=== PATIENT | female | born 1980 | race Caucasian/White ===

== ENCOUNTER → 2018-02-01 | Outpatient (CLI) | payer BC ==
--- NOTE | 2018-02-02 07:39 | MM ---
Reason for exam: screening (asymptomatic). Baseline mammogram. History: Taking hormonal contraceptives beginning at age 20. Physical Findings: Nurse did not find any significant physical abnormalities on exam. MG Screening Mammo w CAD Bilateral CC and MLO view(s) were taken. The breast tissue is extremely dense which could obscure a lesion on mammography. There is no discrete abnormality. These results were verbally communicated with the patient and result sheet given to the patient on 02/01/18. ASSESSMENT: Negative, BI-RAD 1 RECOMMENDATION: Routine screening mammogram of both breasts at age 42.
== END | disposition home or self-care (01) ==
LOC: RADMAMWWP 14:06
PROVIDERS: ATTEND Obstetrics & Gynecology
DX: Z12.31 Encounter for screening mammogram for malignant neoplasm of breast (principal)
CPT/HCPCS: 77067

== ENCOUNTER → 2018-07-20 | Outpatient (CLI) | payer BC ==
--- NOTE | 2018-07-21 08:27 | XR ---
EXAMINATION TYPE: XR chest 2V DATE OF EXAM: 07/20/2018 COMPARISON: CT chest 08/13/2011 HISTORY: Presurgical TECHNIQUE: Frontal and lateral views of the chest are obtained. FINDINGS: There is no focal air space opacity, pleural effusion, or pneumothorax seen. The cardiac silhouette size is within normal limits. The osseous structures are intact. IMPRESSION: No acute cardiopulmonary process.
== END | disposition home or self-care (01) ==
LOC: RADXRMAIN 17:00
PROVIDERS: ATTEND Internal Medicine Geriatric Medicine
DX: Z01.818 Encounter for other preprocedural examination (principal)
CPT/HCPCS: 71046

== ENCOUNTER → 2021-09-07 | Outpatient (CLI) | payer BC ==
[2021-09-07 11:23] LABS: HCT 38.1 % (37.2-46.3); MCH 33.7 pg (27.0-32.0); MCHC 34.1 g/dL (32.0-37.0); MCV 98.7 fL (80.0-97.0); Mean Platelet Volume 10.4 fL (9.5-12.2); Platelet Count 285 X 10*3/uL (140-440); RBC 3.86 X 10*6/uL (4.10-5.20); RDW 11.8 % (11.5-14.5); WBC 9.51 X 10*3/uL (4.50-10.00)
[2021-09-07 11:24] LABS: Appearance,Urine Clear (Clear); Bacteria,Urine Rare /hpf; Bilirubin,Urine Negative (Negative); Blood,Urine Small (Negative); Color,Urine Light Yellow; Glucose,Urine (UA) Negative (Negative); Ketones,Urine Negative (Negative); Leukocyte Esterase,Urine Negative (Negative); Mucus,Urine Rare /hpf; Nitrite,Urine Negative (Negative); PH, Urine 5.5 (5.0-8.0); Protein,Urine Negative (Negative); RBC,Urine 2 /hpf (0-5); Squamous Epithelial Cell,Urine 1 /hpf (0-4); Urobilinogen,Urine <2.0 mg/dL (<2.0); WBC,Urine <1 /hpf (0-5)
[2021-09-07 16:59] LABS: Uric Acid 3.3 mg/dL (2.9-7.7)
[2021-09-07 17:05] LABS: Hepatitis B Surface Antigen Nonreactive (Nonreactive)
[2021-09-07 21:13] LABS: Total Volume 24 Hour,Urine 3000 mL
[2021-09-07 21:53] LABS: HIV 2 AB Non-Reactive (Non-Reactive); HIV AB P24 Non-Reactive (Non-Reactive); HIV P24 AG Non-Reactive (Non-Reactive)
[2021-09-08 12:46] LABS: Total Protein 24 Hour,Urine 9.2 mg/dL (0.0-165.0)
== END | disposition home or self-care (01) ==
LOC: LABWHC1 07:36
PROVIDERS: ATTEND Obstetrics & Gynecology Obstetrics
DX: Z34.01 Encounter for supervision of normal first pregnancy, first trimester (principal); I10 Essential (primary) hypertension
CPT/HCPCS: 36415; 81001; 81050; 82575; 82950; 83036; 84156; 84450; 84460; 84550; 85027; 86762; 86780; 86850; 86900; 86901; 87086; 87340; 87390

== ENCOUNTER → 2021-12-18 | Outpatient (CLI) | payer BC ==
[2021-12-18 14:34] LABS: HCT 37.7 % (37.2-46.3); HGB 12.2 g/dL (12.0-15.0); MCHC 32.4 g/dL (32.0-37.0); MCV 101.9 fL (80.0-97.0); Mean Platelet Volume 10.2 fL (9.5-12.2); Platelet Count 297 X 10*3/uL (140-440); RDW 12.5 % (11.5-14.5); WBC 11.13 X 10*3/uL (4.50-10.00)
== END | disposition home or self-care (01) ==
LOC: LABWHC1 07:01
PROVIDERS: ATTEND Obstetrics & Gynecology Obstetrics
DX: Z36.9 Encounter for antenatal screening, unspecified (principal)
CPT/HCPCS: 36415; 82950; 85027

== ENCOUNTER 2022-02-23 18:58 | Inpatient (IN) | payer BC ==
[2022-02-23] MEDS ORDERED: LIDOCAINE 1% (PF) 10 MG/ML (30 ML SDV) SQ PRN (19:49)
[2022-02-23] MEDS ORDERED: METHYLERGONOVINE 0.2 MG/ML 1 ML AMP IM PRN (19:49)
[2022-02-23] MEDS ORDERED: OXYTOCIN 10 UNIT/ML 1 ML VIAL IM PRN (19:49)
[2022-02-23] MEDS ORDERED: CARBOPROST TROMETHAMINE 250 MCG/ML 1 ML AMP IM PRN (19:49)
[2022-02-23] MEDS ORDERED: TERBUTALINE 1 MG/ML VIAL SQ PRN (19:49)
[2022-02-23] MEDS ORDERED: LABETALOL 200 MG TAB PO STA (19:50)
[2022-02-23] MEDS ORDERED: PENICILLIN G POTASSIUM 5,000,000 UNIT in DEXTROSE 5% IN WATER 100 ML IVPB STA ×2 (19:54)
[2022-02-23 20:05] LABS: Basophils % (A) 0 %; Eosinophils # (A) 0.1 k/uL (0-0.7); Eosinophils % (A) 1 %; HCT 42.7 % (34.0-46.0); Lymphocytes % (A) 17 %; MCH 33.1 pg (25.0-35.0); MCHC 32.9 g/dL (31.0-37.0); MCV 100.6 fL (80.0-100.0); Mean Platelet Volume 7.8; Monocytes # (A) 0.5 k/uL (0-1.0); Monocytes % (A) 5 %; Neutrophils # (A) 8.8 k/uL (1.3-7.7); Neutrophils % (A) 74 %; Platelet Count 301 k/uL (150-450); RBC 4.24 m/uL (3.80-5.40); RDW 12.8 % (11.5-15.5); WBC 11.9 k/uL (3.8-10.6)
[2022-02-23 20:11] LABS: Uric Acid 4.6 mg/dL (3.7-7.4)
[2022-02-23] MEDS ORDERED: BUTORPHANOL 1 MG/ML 1 ML VIAL IV PRN (20:36)
[2022-02-23] MEDS: LACTATED RINGERS 1,000 ML IV SCH (20:41)
[2022-02-24] MEDS: PENICILLIN G POTASSIUM 2,500,000 UNIT in DEXTROSE 5% IN WATER 100 ML IVPB SCH ×6 (01:12→22:26)
[2022-02-24] MEDS ORDERED: ROPIVACAINE 5MG/ML 20ML VIAL ONE (03:29)
[2022-02-24] MEDS ORDERED: fentaNYL (PF) 50 MCG/ML 5 ML AMP ONE (03:29)
[2022-02-24] MEDS ORDERED: SODIUM CHLORIDE 0.9% 100 ML BAG ONE (03:29)
[2022-02-24] MEDS: LACTATED RINGERS 1,000 ML IV SCH ×2 (04:14→04:15)
[2022-02-24] MEDS ORDERED: OXYTOCIN 30 UNITS/500 ML NS 30 UNIT in SALINE 1 500ML.BAG IV SCH (06:00)
[2022-02-24] MEDS ORDERED: LABETALOL 200 MG TAB PO ONE (07:00)
--- NOTE | 2022-02-24 08:42 | P.HPOB ---
History of Present Illness H&P Date: 02/24/22 Chief Complaint: My water broke last night, clear fluid This is a 41-year-old female 1 para 0 EDC 03/23/2022 at 36 and one sevenths weeks' gestation who presented, spontaneous amniorrhexis last night at home, clear fluid. She progressed through labor as the night progressed. Initial blood pressure elevated, on labetalol 100 mg twice daily, has not taken for 24 hours. Past history is significant for chronic hypertension. Past surgical history herniated disc repair 2017. Current medications labetalol 100 mg twice daily, vitamin daily, baby aspirin daily. ALLERGIES none known. Family history significant for diabetes and cardiomegaly. 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 Her boyfriend Johny is present and involved. history is significant for blood type A+, rubella status immune. VDRL testing, hepatitis B surface antigen, HIV testing, urine culture, gonorrhea and chlamydia cultures all negative. One-hour Glucola 127. Group B strep status unknown. On exam patient is 5 foot 7 inches, 223 pounds, vital signs are stable and she is afebrile. Patient is currently 9 cm dilated, 90% effaced, -1 station, vertex presentation. heart rate is consistent with reactive NST. Uterine contractions occurring approximately every 4-5 minutes apart. Epidural has been placed. Impression: 36 and one sevenths weeks intrauterine , chronic hypertension, active labor. Group B status unknown. Penicillin she received 3 doses. All signs reassuring. Plan: Close maternal and surveillance. Anticipate normal spontaneous vaginal delivery. Review of Systems Constitutional: Reports as per HPI Past Medical History Past Medical History: No Reported History, Hypertension History of Any Multi-Drug Resistant Organisms: None Reported Additional Past Surgical History / Comment(s): spinal fusion 2018 Past Anesthesia/Blood Transfusion Reactions: No Reported Reaction Past Psychological History: No Psychological Hx Reported Smoking Status: Former smoker Past Drug Use History: None Reported Medications and Allergies Home Medications Medication Instructions Recorded Confirmed Type Aspirin [Adult Low Dose Aspirin EC] 81 mg PO DAILY 02/23/22 02/23/22 History Labetalol [Trandate] 100 mg PO BID 02/23/22 02/23/22 History Pnv No.95/Ferrous Fum/Folic AC 1 tab PO DAILY 02/23/22 02/23/22 History [ Multivitamin Tablet] Allergies Allergy/AdvReac Type Severity Reaction Status Date / Time No Known Allergies Allergy Verified 02/23/22 19:06 Exam Vital Signs Temp Pulse Resp BP Pulse Ox 02/23/22 19:49 97.7 F 120 H 16 174/100 100 02/23/22 19:01 97.7 F 129 H 16 174/100 100 Intake and Output 02/23/22 02/24/22 02/24/22 22:59 06:59 14:59 Output Total 200 Balance -200 Output: Urine 200 Other: Weight 105.687 kg See dictation under HPI please Results Result Diagrams: 02/23/22 20:00 Abnormal Lab Results - Last 24 Hours (Table) 02/23/22 Range/Units 20:00 WBC 11.9 H (3.8-10.6) k/uL MCV 100.6 H (80.0-100.0) fL Neutrophils # 8.8 H (1.3-7.7) k/uL Assessment and Plan Assessment: Advanced maternal age, active spontaneous labor at 36 and one sevenths weeks, chronic hypertension. All signs reassuring. Plan: Continue close maternal and surveillance. Anticipate normal spontaneous vaginal delivery. Time with Patient: Less than 30
--- NOTE | 2022-02-24 09:39 | P.PROBDLV ---
Vaginal Delivery Note - . Vaginal Delivery Note: This is a 41-year-old female 1 para 0 EDC 03/23/2022 at 36 and one sevenths weeks' gestation who presented last night with spontaneous amniorrhexis at home. is remarkable for chronic hypertension and advanced maternal age. Group B strep status unknown. Please see dictated history and physical for details. Patient was admitted, penicillin G prophylaxis was given for unknown group B strep cultures, 3 doses in total received. Epidural was placed per her request. Oxytocin augmentation was also given. Patient progressed well through the first stage of labor and became completely dilated at 0811 hours and began the second stage of labor at that time. She pushed well and ultimately station was advanced. Perineal body was prepped and draped in the usual sterile fashion. heart tones were reassuring throughout the first and second stages. Infant's head delivered occiput anterior and she restituted accordingly. There was a nuchal cord 1 that was reduced. The right or anterior shoulder was delivered easily from underneath the pubic symphysis at which time the oropharynx, nasopharynx, and external nares were all bulb suctioned. Patient was officially delivered of a liveborn female infant at 0921 hours. Umbilical cord was doubly clamped and ligated, she was handed to waiting nurses for evaluation where scores of 9 and 9 at one and 5 minutes respectively were given. Placenta delivered spontaneously, it was inspected and noted to be intact with trivascular cord at 0925 hours. Uterus is then massaged. Careful inspection of the cervix, vagina, perineum, and perirectal areas revealed a second-degree perineal laceration with slight extension to a third-degree. Rectal sphincter was reinforced with 3-0 Vicryl with a single deep [id number] suture. Repeat is used for the final repair, excellent reapproximation. Rectal exam is negative, good tone, no foreign bodies. Total estimated blood loss 250 mL's. All sponge needle and enhancement counts are correct. Patient and her family are allowed to begin the bonding experience in the LDR. weighs 7 lbs. 2 oz. or 3220 g.
[2022-02-24] MEDS ORDERED: diphenhydrAMINE 25 MG CAP PO PRN (10:14)
[2022-02-24] MEDS ORDERED: ZOLPIDEM 5 MG TAB PO PRN (10:14)
[2022-02-24] MEDS ORDERED: diphenhydrAMINE 50 MG/ML 1 ML VIAL IVP PRN ×2 (10:14)
[2022-02-24] MEDS ORDERED: HYDROCORTISONE 2.5% RECTAL CREAM 30 GM TUBE RECTAL PRN (10:14)
[2022-02-24] MEDS ORDERED: LANOLIN CREAM 5 GM TUBE TOPICAL PRN (10:14)
[2022-02-24] MEDS ORDERED: SIMETHICONE 80 MG CHEWABLE PO PRN (10:14)
[2022-02-24] MEDS ORDERED: ACETAMINOPHEN TAB 325 MG TAB PO PRN (10:14)
[2022-02-24] MEDS ORDERED: diphenhydrAMINE 50 MG CAP PO PRN (10:14)
[2022-02-24] MEDS ORDERED: BENZOCAINE/MENTHOL SPRAY 1 GM/SPRAY AEROSOL TOPICAL PRN (10:14)
[2022-02-24] MEDS: SENNOSIDES-DOCUSATE SODIUM 1 EACH TAB PO SCH (21:00)
[2022-02-24] MEDS: LABETALOL 100 MG TAB PO SCH (21:00)
[2022-02-24] MEDS: IBUPROFEN 600 MG TAB PO PRN (21:00)
[2022-02-25] MEDS: IBUPROFEN 600 MG TAB PO PRN ×3 (05:19→20:09)
[2022-02-25 07:26] LABS: Basophils % (A) 0 %; Eosinophils # (A) 0.2 k/uL (0-0.7); Eosinophils % (A) 2 %; HCT 38.7 % (34.0-46.0); HGB 12.8 gm/dL (11.4-16.0); Lymphocytes # (A) 2.3 k/uL (1.0-4.8); Lymphocytes % (A) 16 %; MCH 33.3 pg (25.0-35.0); MCV 100.8 fL (80.0-100.0); Mean Platelet Volume 8.2; Monocytes # (A) 0.9 k/uL (0-1.0); Monocytes % (A) 6 %; Neutrophils # (A) 10.5 k/uL (1.3-7.7); Neutrophils % (A) 74 %; Platelet Count 237 k/uL (150-450); RBC 3.84 m/uL (3.80-5.40); RDW 12.3 % (11.5-15.5); WBC 14.1 k/uL (3.8-10.6)
[2022-02-25] MEDS: SENNOSIDES-DOCUSATE SODIUM 1 EACH TAB PO SCH ×2 (07:40→20:09)
--- NOTE | 2022-02-25 08:29 | P.DS ---
Providers Date of admission: 02/23/22 19:20 Expected date of discharge: 02/25/22 Attending physician: Dominique Mejia Primary care physician: Stated None Hospital Course: This is a 41-year-old female 1 para 0 EDC 03/23/2022 at 36 weeks' gestation who presented with spontaneous amniorrhexis at home. is remarkable for chronic hypertension, advanced maternal age, group B strep cultures unknown. Please see my dictated history and physical for details. Patient was admitted, underwent a spontaneous vaginal delivery of a liveborn female with scores of 9 and 9 at one and 5 minutes respectively. There was a nuchal cord 1. There was a partial third-degree laceration repaired easily, with good reapproximation. Infant weighed 7 lbs. 2 oz. or 3220 g. Please see my dictated delivery note for details. This morning the patient is doing well. She is voiding, ambulating, passing flatus without difficulty. Vital signs are stable and she is afebrile. is doing well. Blood pressure is stable on labetalol 100 mg twice daily. Patient is judged to be in very good condition for discharge home. She will follow-up in the office with her own primary care physician in 6 weeks. She will continue labetalol 100 mg twice daily. I've asked her to call with any fevers shakes or chills, foul smelling or copious lochia, with the passage of large blood clots, with any pain not alleviated by Advil, Motrin or Aleve, or indeed with any concerns. We have briefly discussed contraceptive options and we will discuss this further in the office. Assessment: Doing well day #1 Patient Condition at Discharge: Good Plan - Discharge Summary New Discharge Prescriptions: No Action Labetalol [Trandate] 100 mg PO BID Pnv No.95/Ferrous Fum/Folic AC [ Multivitamin Tablet] 1 tab PO DAILY Aspirin [Adult Low Dose Aspirin EC] 81 mg PO DAILY Discharge Medication List Aspirin [Adult Low Dose Aspirin EC] 81 mg PO DAILY 02/23/22 [History] Labetalol [Trandate] 100 mg PO BID 02/23/22 [History] Pnv No.95/Ferrous Fum/Folic AC [ Multivitamin Tablet] 1 tab PO DAILY 02/23/22 [History] Follow up Appointment(s)/Referral(s): Dominique Mejia DO [Doctor of Osteopathic Medicine] - 6 Weeks
[2022-02-25] MEDS: LABETALOL 100 MG TAB PO SCH ×2 (09:25→21:07)
[2022-02-26] MEDS: IBUPROFEN 600 MG TAB PO PRN (06:43)
[2022-02-26 08:21] VITALS: BP 128/74; PULSE 91; RESP 14; TEMP 98.5
[2022-02-26] MEDS: LABETALOL 100 MG TAB PO SCH (08:42)
[2022-02-26] MEDS: SENNOSIDES-DOCUSATE SODIUM 1 EACH TAB PO SCH (08:42)
== END 2022-02-26 15:29 | disposition home or self-care (01) | DRG 768 ==
LOC: FBPOP 18:58 → 4FBP 19:20
PROVIDERS: ADMIT Obstetrics & Gynecology; ATTEND Obstetrics & Gynecology Obstetrics
PROC: 10E0XZZ Delivery of Products of Conception, External Approach (ICD-10-PCS; principal; 2022-02-24)
PROC: 0DQR0ZZ Repair Anal Sphincter, Open Approach (ICD-10-PCS; 2022-02-24)
PROC: 0KQM0ZZ Repair Perineum Muscle, Open Approach (ICD-10-PCS; 2022-02-24)
PROC: 10907ZC Drainage of Amniotic Fluid, Therapeutic from Products of Conception, Via Natural or Artificial Opening (ICD-10-PCS; 2022-02-24)
PROC: 4A0HXCZ Measurement of Products of Conception, Cardiac Rate, External Approach (ICD-10-PCS; 2022-02-24)
PROC: 3E033VJ Introduction of Other Hormone into Peripheral Vein, Percutaneous Approach (ICD-10-PCS; 2022-02-24)
DX: O10.92 Unspecified pre-existing hypertension complicating childbirth (principal); Z37.0 Single live birth; O70.20 Third degree perineal laceration during delivery, unspecified; O69.81X0 Labor and delivery complicated by cord around neck, without compression, not applicable or unspecified; Z3A.36 36 weeks gestation of pregnancy; Z79.82 Long term (current) use of aspirin; Z83.3 Family history of diabetes mellitus; Z87.891 Personal history of nicotine dependence; Z98.1 Arthrodesis status
CPT/HCPCS: 59025; 84112; 84450; 84460; 84550; 85025; 85730; 86850; 86900; 86901; 88307; 99213

== ENCOUNTER → 2023-03-24 | Outpatient (CLI) | payer BC ==
--- NOTE | 2023-03-26 20:43 | MM ---
Reason for Exam: Screening (asymptomatic). Last mammogram was performed 5 year(s) and 1 month(s) ago. Patient History: Menarche at age 14. First Full-Term at age 41. Late child-bearing (after 30). Patient has history of breast feeding. Currently using Hormonal Contraceptives, starting at age 20. Paternal grandmother had ovarian cancer, age 55. Risk Values: Mendy 5 year model risk: 0.8%. NCI Lifetime model risk: 13.6%. Prior Study Comparison: 02/01/2018 Bilateral Screening Mammogram, [facility]. Tissue Density: The breast tissue is heterogeneously dense. This may lower the sensitivity of mammography. Findings: Analyzed By CAD. Areas of bilateral asymmetric density appear unchanged. There is no suspicious group of microcalcifications or new suspicious mass in either breast. Overall Assessment: Benign, BI-RAD 2 Management: Screening Mammogram of both breasts in 1 year. . Patient should continue monthly self-breast exams. A clinical breast exam by your physician is recommended on an annual basis. This exam should not preclude additional follow-up of suspicious palpable abnormalities. Note on Mendy scores and lifetime risk: 1. A Mendy score greater than 3% is considered moderate risk. If this is the case, consider specialist referral to assess eligibility for a risk reducing agent. 2. If overall lifetime risk for the development of breast cancer is 20% or higher, the patient may qualify for future screening with alternating mammogram and breast MRI. Electronically signed and approved by: Hannah Jolley M.D. Radiologist
== END | disposition home or self-care (01) ==
LOC: RADMAMWWP 15:08
PROVIDERS: ATTEND Obstetrics & Gynecology Obstetrics
DX: Z12.31 Encounter for screening mammogram for malignant neoplasm of breast (principal)
CPT/HCPCS: 77067

== ENCOUNTER → 2024-06-26 | Outpatient (CLI) | payer BC ==
--- NOTE | 2024-06-28 12:04 | MM ---
Reason for Exam: Screening (asymptomatic). Last mammogram was performed 1 year(s) and 3 month(s) ago. Patient History: Menarche at age 14. First Full-Term at age 41. Late child-bearing (after 30). Premenopausal. Patient has history of breast feeding. Currently using Hormonal Contraceptives, starting at age 20. Paternal grandmother had ovarian cancer, age 55. Risk Values: Mendy 5 year model risk: 0.8%. NCI Lifetime model risk: 13.5%. Prior Study Comparison: 02/01/2018 Bilateral Screening Mammogram, [facility]. 03/24/2023 Bilateral MG screening mammo w CAD, [facility]. Tissue Density: The breasts are heterogeneously dense, which may obscure small masses. Findings: Analyzed By CAD. Area of distortion upper right breast with asymmetric density is noted and is approximately 7.8 cm from the nipple. Additional views are recommended. No suspicious calcifications within either breast. Overall Assessment: Incomplete: need additional imaging evaluation, BI-RAD 0 Management: Diagnostic Mammogram of the right breast. . Patient should continue monthly self-breast exams. A clinical breast exam by your physician is recommended on an annual basis. This exam should not preclude additional follow-up of suspicious palpable abnormalities. Note on Mendy scores and lifetime risk: 1. A Mendy score greater than 3% is considered moderate risk. If this is the case, consider specialist referral to assess eligibility for a risk reducing agent. 2. If overall lifetime risk for the development of breast cancer is 20% or higher, the patient may qualify for future screening with alternating mammogram and breast MRI. Electronically signed and approved by: Franklin Harmon M.D. Radiologis
== END | disposition home or self-care (01) ==
LOC: RADMAMWWP 11:16
PROVIDERS: ATTEND Obstetrics & Gynecology Obstetrics
DX: Z12.31 Encounter for screening mammogram for malignant neoplasm of breast (principal); R92.333 Mammographic heterogeneous density, bilateral breasts; Z80.41 Family history of malignant neoplasm of ovary
CPT/HCPCS: 77067

== ENCOUNTER → 2024-08-01 | Outpatient (CLI) | payer BC ==
--- NOTE | 2024-08-01 14:31 | MM ---
Reason for Exam: Additional evaluation requested from abnormal screening. Last screening mammogram was performed 2 month(s) ago. Patient History: Menarche at age 14. First Full-Term at age 41. Late child-bearing (after 30). Premenopausal. Patient has history of breast feeding. Currently using Hormonal Contraceptives, starting at age 20. Paternal grandmother had ovarian cancer, age 55. Risk Values: Mendy 5 year model risk: 0.8%. NCI Lifetime model risk: 13.5%. Tissue Density: Right: The breasts are heterogeneously dense, which may obscure small masses. Findings: Analyzed By CAD. Asymmetry upper aspect of the breast measuring 9 mm approximately 7.8 cm from the nipple. Not definitely seen on CC view. Overall Assessment: Incomplete: need additional imaging evaluation, BI-RAD 0 Management: Diagnostic Breast Ultrasound of the right breast. Results were given to the patient verbally at the time of exam. Patient should continue monthly self-breast exams. A clinical breast exam by your physician is recommended on an annual basis. This exam should not preclude additional follow-up of suspicious palpable abnormalities. Note on Mendy scores and lifetime risk: 1. A Mendy score greater than 3% is considered moderate risk. If this is the case, consider specialist referral to assess eligibility for a risk reducing agent. 2. If overall lifetime risk for the development of breast cancer is 20% or higher, the patient may qualify for future screening with alternating mammogram and breast MRI. Electronically signed and approved by: Emanuel Butler DO
--- NOTE | 2024-08-01 15:04 | USB ---
Reason for Exam: Additional evaluation requested from abnormal screening. Patient History: Menarche at age 14. First Full-Term at age 41. Late child-bearing (after 30). Premenopausal. Patient has history of breast feeding. Currently using Hormonal Contraceptives, starting at age 20. Paternal grandmother had ovarian cancer, age 55. Risk Values: Mendy 5 year model risk: 0.8%. NCI Lifetime model risk: 13.5%. Technique: Method: Targeted. Prior Study Comparison: 02/01/2018 Bilateral Screening Mammogram, [facility]. 03/24/2023 Bilateral MG screening mammo w CAD, [facility]. 06/26/2024 Bilateral MG screening mammo w CAD, [facility]. Findings: The upper section of the breast of the right breast, the axilla of the right breast and the retroareolar of the right breast were scanned. Technique utilized:US breast workup limited RT Image; Ultrasound imaging of: Area of concern, retroareolar region and axilla. On one of the radiographic views at 1:00 7 cm from the nipple is hypoechoic mass measuring up to 12 mm image 17/19. Unclear if this is fibroglandular tissue given as a similar morphology in appearance on other images. Short-term follow-up recommended. Overall Assessment: Probably benign, BI-RAD 3 Management: Diagnostic Breast Ultrasound of the right breast in 3 months. A clinical breast exam by your physician is recommended on an annual basis and results should be correlated with mammographic findings. This exam should not preclude additional follow-up of suspicious palpable abnormalities. Results were given to the patient verbally at the time of exam. Electronically signed and approved by: Emanuel Butler DO
== END | disposition home or self-care (01) ==
LOC: RADMAMWWP 14:09
PROVIDERS: ATTEND Obstetrics & Gynecology Obstetrics
DX: R92.8 Other abnormal and inconclusive findings on diagnostic imaging of breast
CPT/HCPCS: 77061; 77065

== ENCOUNTER → 2024-11-09 | Outpatient (CLI) | payer BC ==
--- NOTE | 2024-11-10 21:41 | USB ---
Reason for Exam: Follow-up at short interval from prior study. Patient History: Menarche at age 14. First Full-Term at age 41. Late child-bearing (after 30). Premenopausal. Patient has history of breast feeding. Currently using Hormonal Contraceptives, starting at age 20. Paternal grandmother had ovarian cancer, age 55. Risk Values: Mendy 5 year model risk: 0.9%. NCI Lifetime model risk: 13.4%. Prior Study Comparison: 03/24/2023 Bilateral MG screening mammo w CAD, [facility]. 06/26/2024 Bilateral MG screening mammo w CAD, [facility]. 08/01/2024 Right US breast workup limited RT, [facility]. 08/01/2024 Right MG 3D work up w/cad RT, [facility]. Findings: The axilla of the right breast and the retroareolar of the right breast were scanned. Electronically signed and approved by: Isaiah Savage D.O. Radiologis
== END | disposition home or self-care (01) ==
LOC: RADUSWWP 13:50
PROVIDERS: ATTEND Obstetrics & Gynecology Obstetrics
DX: R92.8 Other abnormal and inconclusive findings on diagnostic imaging of breast (principal); Z80.41 Family history of malignant neoplasm of ovary